=== PATIENT | male | born 1955 | race Caucasian/White ===

== ENCOUNTER 2023-02-27 10:49 | Day surgery (SDC) | payer MEDICARE ==
[~2023-02-27] VITALS: Ht 167.6 cm; Wt 105.1 kg
[~2023-02-27 10:49] MED LIST: ATOR40TA75 PO; CYCLOPENTOLATE 1% OPHTH SOLN 2ML BTL OS SCH; ERGO500029 PO; EYECAP2 PO; FLURBIPROFEN 0.03% OPHTH SOLN 2.5 ML OS SCH; GABA-282 PO; LEVE250T5 PO; LIDOCAINE 1% SDV 5ML VIAL As Ordered ONE; LOSA50TA28 PO; LR 1,000 ML IV SCH; OMEP-173 PO; PARO30TA4 PO; PHENYLEPHRINE 2.5% OPHTH SOL 2ML OS SCH; TETRACAINE 0.5% OPHTH SOLN 4ML OS SCH
[2023-02-27] MEDS ORDERED: MIDAZOLAM INJ 2MG/2ML VIAL As Ordered ONE (14:22)
[2023-02-27] MEDS ORDERED: fentaNYL 100 MCG/2 ML INJECTION As Ordered ONE (14:22)
[2023-02-27 14:50] VITALS: BP 136/75; TEMP 97.7; O2SAT 96
== END 2023-02-27 15:01 | disposition home or self-care (01) ==
LOC: M SDC 10:49
PROVIDERS: ATTEND Ophthalmology
DX: H25.12 Age-related nuclear cataract, left eye (principal); I10 Essential (primary) hypertension; K21.9 Gastro-esophageal reflux disease without esophagitis; Z86.16 Personal history of COVID-19; Z79.899 Other long term (current) drug therapy; E78.5 Hyperlipidemia, unspecified; F41.9 Anxiety disorder, unspecified; F32.A Depression, unspecified; G47.33 Obstructive sleep apnea (adult) (pediatric); G40.909 Epilepsy, unspecified, not intractable, without status epilepticus
CPT/HCPCS: 66984; J2250; J3010; V2632

== ENCOUNTER → 2023-03-06 | Outpatient (REF) | payer MEDICARE ==
[~2023-03-06] MED LIST changes: -CYCLOPENTOLATE 1% OPHTH SOLN 2ML BTL OS SCH; -FLURBIPROFEN 0.03% OPHTH SOLN 2.5 ML OS SCH; -LIDOCAINE 1% SDV 5ML VIAL As Ordered ONE; -LR 1,000 ML IV SCH; -PHENYLEPHRINE 2.5% OPHTH SOL 2ML OS SCH; -TETRACAINE 0.5% OPHTH SOLN 4ML OS SCH
== END ==
LOC: M LAB REF 13:35
PROVIDERS: ATTEND Ophthalmology Retina Specialist
DX: H44.009 Unspecified purulent endophthalmitis, unspecified eye (principal)

== ENCOUNTER 2023-07-24 08:32 | Day surgery (SDC) | payer MEDICARE ==
[~2023-07-24] VITALS: Ht 167.6 cm; Wt 111.2 kg
[~2023-07-24 08:32] MED LIST changes: +CEFUROXIME 1MG/0.1ML INTRACAMERAL INJ As Ordered ONE; +CYCLOPENTOLATE 1% OPHTH SOLN 2ML BTL OD SCH; +FLURBIPROFEN 0.03% OPHTH SOLN 2.5 ML OD SCH; +LIDOCAINE 1% SDV 5ML VIAL As Ordered ONE; +LR 1,000 ML IV SCH; +PHENYLEPHRINE 2.5% OPHTH SOL 2ML OD SCH; +TETRACAINE 0.5% OPHTH SOLN 4ML OD SCH
[2023-07-24] MEDS ORDERED: ONDANSETRON 4MG 2ML VIAL As Ordered ONE (10:01)
[2023-07-24] MEDS ORDERED: METOCLOPRAMIDE INJ 10MG/2ML VIAL As Ordered ONE (10:02)
[2023-07-24] MEDS ORDERED: MIDAZOLAM INJ 2MG/2ML VIAL As Ordered ONE (10:05)
[2023-07-24] MEDS ORDERED: fentaNYL 100 MCG/2 ML INJECTION As Ordered ONE (10:28)
[2023-07-24 10:49] VITALS: BP 159/71; TEMP 97.4; O2SAT 95
== END 2023-07-24 11:05 | disposition home or self-care (01) ==
LOC: M SDC 08:32
PROVIDERS: ATTEND Ophthalmology
DX: H25.11 Age-related nuclear cataract, right eye (principal); I10 Essential (primary) hypertension; E78.00 Pure hypercholesterolemia, unspecified; K21.9 Gastro-esophageal reflux disease without esophagitis; G47.30 Sleep apnea, unspecified; R56.9 Unspecified convulsions; Z79.899 Other long term (current) drug therapy; Z88.0 Allergy status to penicillin
CPT/HCPCS: 66984; J0697; J2250; J2405; J2765; J3010; V2632